=== PATIENT | female | born 1980 | race Caucasian/White ===

== ENCOUNTER → 2020-01-04 | Outpatient (CLI) | payer OTHER ==
[2020-01-04 07:56] LABS: BASO % 0.1 % (0.0-1.0); EOS # 0.1 10*3/uL (0.0-0.4); EOS % 0.5 % (1.0-4.0); HEMATOCRIT 36.2 % (37.0-47.0); HEMOGLOBIN 11.8 g/dl (12.0-16.0); LYMPH # 2.1 10*3/uL (1.3-4.4); LYMPH % 15.8 % (27.0-41.0); MEAN CELL VOLUME 93.5 fl (81.0-99.0); MEAN CORPUSCULAR HGB 30.5 pg (27.0-31.0); MEAN CORPUSCULAR HGB CONC 32.6 g/dl (33.0-37.0); MEAN PLATELET VOLUME 10.7 fl (9.6-12.3); MONO # 0.6 10*3/uL (0.1-1.0); MONO % 4.3 % (3.0-9.0); NEUT # 10.5 10*3/uL (2.3-7.9); NEUT % 78.5 % (47.0-73.0); PLATELET COUNT AUTOMATED 181 10*3/uL (130-400); RED BLOOD COUNT 3.87 10*6/uL (4.10-5.10); RED CELL DISTRI WIDTH 14.4 % (0-14.5); WHITE BLOOD COUNT 13.4 10*3/uL (4.8-10.8)
== END | disposition home or self-care (01) ==
LOC: LAB 07:15
PROVIDERS: Obstetrics & Gynecology
DX: Z34.90 Encounter for supervision of normal pregnancy, unspecified, unspecified trimester (principal); Z3A.00 Weeks of gestation of pregnancy not specified

== ENCOUNTER → 2020-01-16 | Outpatient (CLI) | payer OTHER ==
[~2020-01-16] MED LIST: PRENATAL TABLE1 EAC2 PO
[2020-01-16 10:32] VITALS: BP 127/67
== END | disposition home or self-care (01) ==
LOC: INJECTION 10:00
DX: O36.0930 Maternal care for other rhesus isoimmunization, third trimester, not applicable or unspecified (principal); Z67.11 Type A blood, Rh negative; Z3A.00 Weeks of gestation of pregnancy not specified

== ENCOUNTER → 2020-01-18 | Outpatient (CLI) | payer OTHER | END | disposition home or self-care (01) | LOC: LAB 07:40 | DX: O99.810 Abnormal glucose complicating pregnancy (principal) ==